=== PATIENT | female | born 1975 | race Caucasian/White ===

== ENCOUNTER 2022-07-31 07:58 | Outpatient (CLI) | payer BC | END 2022-07-31 07:59 | disposition home or self-care (01) | LOC: CSHMAMMO 07:58 | PROVIDERS: ATTEND Student in an Organized Health Care Education/Training Program | DX: N63.20 Unspecified lump in the left breast, unspecified quadrant (principal); N63.15 Unspecified lump in the right breast, overlapping quadrants | CPT/HCPCS: 77066; G0279 ==

== ENCOUNTER 2023-03-20 22:46 | Emergency (ER) | payer BC ==
[2023-03-20 23:32] LABS: #Basophils 0.1 10x3/uL (0.0-0.2); #Eosinphils 0.2 10x3/uL (0.0-0.5); #Monocytes 0.5 10x3/uL (0.0-1.1); #Neutrophils 5.2 10x3/uL (1.5-8.4); %Basophils 0.7 % (0.0-2.0); %Eosinophils 2.2 % (0.0-6.0); %Lymphocytes 30.6 % (18.0-47.0); %Monocytes 5.5 % (0.0-10.0); %Neutrophils 60.8 % (40.0-75.0); Hematocrit 36.6 % (34.9-44.5); Hemoglobin 12.2 g/dL (12.0-15.5); Mean Corpuscular HGB CONC 33.3 g/dL (32.0-36.0); Mean Corpuscular Hemoglobin 30.6 pg (27.0-33.0); Mean Corpuscular Volume 91.7 fl (81.6-98.3); Mean Platelet Volume 9.4 fl (7.4-10.4); Platelet Count 279 10x3/uL (150-450); RBC Distribution Width 11.9 % (11.5-14.5); Red Blood Cell (RBC) Count 3.99 10x6/uL (3.90-5.03); White Blood Cell (WBC) Count 8.5 10x3/uL (3.5-10.5)
[2023-03-20 23:46] LABS: ALT (SGPT) 19 U/L (8-55); AST (SGOT) 18 U/L (5-34); Alkaline Phosphatase 49 U/L (40-110); Anion Gap 11 mmol/L (10-20); BUN (Urea Nitrogen) 10 mg/dL (7.0-18.7); Bilirubin, Total 0.9 mg/dL (0.2-1.2); Calc. Creatinine Clearance 0 mL/min (70-130); Calcium 8.9 mg/dL (7.8-10.44); Carbon Dioxide 27 mmol/L (22-29); Chloride 107 mmol/L (98-107); Estimated GFR 92; Globulin 2.5 g/dL (2.4-3.5); Glucose 102 mg/dL (70-105); Magnesium 1.9 mg/dL (1.6-2.6); Potassium 3.7 mmol/L (3.5-5.1); Protein, Total 6.5 g/dL (6.0-8.3); Sodium 141 mmol/L (136-145)
[2023-03-20 23:52] LABS: Troponin I Less than 0.010 ng/mL (< 0.028)
== END 2023-03-21 00:31 | disposition home or self-care (01) ==
LOC: CSHERS 22:46
DX: I49.3 Ventricular premature depolarization (principal); R00.2 Palpitations
CPT/HCPCS: 36415; 71045; 80053; 83735; 84443; 84484; 85025; 93005

== ENCOUNTER 2023-12-23 10:34 | Outpatient (CLI) | payer BC | END 2023-12-23 10:35 | disposition home or self-care (01) | LOC: CSHDTY/OP 10:34 | PROVIDERS: ATTEND Student in an Organized Health Care Education/Training Program | DX: E66.01 Morbid (severe) obesity due to excess calories (principal) | CPT/HCPCS: 97802 ==

== ENCOUNTER 2024-01-31 09:48 | Outpatient (CLI) | payer BC | END 2024-01-31 09:49 | disposition home or self-care (01) | LOC: CSHDTY/OP 09:48 | PROVIDERS: ATTEND Student in an Organized Health Care Education/Training Program | DX: E66.01 Morbid (severe) obesity due to excess calories (principal) | CPT/HCPCS: 97802 ==

== ENCOUNTER 2024-02-18 08:50 | Outpatient (CLI) | payer BC | END 2024-02-18 08:51 | disposition home or self-care (01) | LOC: CSHDTY/OP 08:50 | PROVIDERS: ATTEND Student in an Organized Health Care Education/Training Program | DX: Z71.3 Dietary counseling and surveillance (principal); E66.01 Morbid (severe) obesity due to excess calories | CPT/HCPCS: 97802 ==

== ENCOUNTER 2024-03-03 09:06 | Outpatient (CLI) | payer BC | END 2024-03-03 09:07 | disposition home or self-care (01) | LOC: CSHDTY/OP 09:06 | PROVIDERS: ATTEND Student in an Organized Health Care Education/Training Program | DX: Z71.3 Dietary counseling and surveillance (principal); E66.01 Morbid (severe) obesity due to excess calories | CPT/HCPCS: 97802 ==

== ENCOUNTER 2024-03-17 13:03 | Outpatient (CLI) | payer BC | END 2024-03-17 13:04 | disposition home or self-care (01) | LOC: CSHDTY/OP 13:03 | PROVIDERS: ATTEND Student in an Organized Health Care Education/Training Program | DX: Z71.3 Dietary counseling and surveillance (principal); E66.01 Morbid (severe) obesity due to excess calories | CPT/HCPCS: 97802 ==

== ENCOUNTER 2024-04-20 10:43 | Outpatient (CLI) | payer BC | END 2024-04-20 10:44 | disposition home or self-care (01) | LOC: CSHDTY/OP 10:43 | PROVIDERS: ATTEND Student in an Organized Health Care Education/Training Program | DX: Z71.3 Dietary counseling and surveillance (principal); E66.01 Morbid (severe) obesity due to excess calories | CPT/HCPCS: 97802 ==

== ENCOUNTER 2024-05-30 14:31 | Outpatient (CLI) | payer BC, OTHER | END 2024-05-30 14:32 | disposition home or self-care (01) | LOC: CSHDTY/OP 14:31 | PROVIDERS: ATTEND Student in an Organized Health Care Education/Training Program | DX: Z71.3 Dietary counseling and surveillance (principal); E66.01 Morbid (severe) obesity due to excess calories | CPT/HCPCS: 97802 ==

== ENCOUNTER 2024-06-27 11:14 | Outpatient (CLI) | payer OTHER | END 2024-06-27 11:15 | disposition home or self-care (01) | LOC: CSHDTY/OP 11:14 | PROVIDERS: ATTEND Student in an Organized Health Care Education/Training Program | DX: Z71.3 Dietary counseling and surveillance (principal); E66.01 Morbid (severe) obesity due to excess calories | CPT/HCPCS: 97802 ==

== ENCOUNTER 2024-12-11 10:45 | Outpatient (CLI) | payer OTHER | END 2024-12-11 10:46 | disposition home or self-care (01) | LOC: CSHDTY/OP 10:45 | PROVIDERS: ATTEND Student in an Organized Health Care Education/Training Program | DX: Z71.3 Dietary counseling and surveillance (principal); E66.01 Morbid (severe) obesity due to excess calories | CPT/HCPCS: 97802 ==

== ENCOUNTER 2024-12-27 13:56 | Outpatient (CLI) | payer OTHER | END 2024-12-27 13:57 | disposition home or self-care (01) | LOC: CSHDTY/OP 13:56 | PROVIDERS: ATTEND Student in an Organized Health Care Education/Training Program | DX: Z71.3 Dietary counseling and surveillance (principal); E66.01 Morbid (severe) obesity due to excess calories | CPT/HCPCS: 97802 ==

== ENCOUNTER 2025-01-17 08:58 | Outpatient (CLI) | payer OTHER | END 2025-01-17 08:59 | disposition home or self-care (01) | LOC: CSHDTY/OP 08:58 | PROVIDERS: ATTEND Student in an Organized Health Care Education/Training Program | DX: Z71.3 Dietary counseling and surveillance (principal); E66.01 Morbid (severe) obesity due to excess calories | CPT/HCPCS: 97802 ==

== ENCOUNTER 2025-03-02 10:53 | Outpatient (CLI) | payer OTHER | END 2025-03-02 10:54 | disposition home or self-care (01) | LOC: CSHDTY/OP 10:53 | DX: Z71.3 Dietary counseling and surveillance (principal); E66.01 Morbid (severe) obesity due to excess calories | CPT/HCPCS: 97802 ==

== ENCOUNTER 2025-04-06 14:02 | Outpatient (CLI) | payer OTHER | END 2025-04-06 14:03 | disposition home or self-care (01) | LOC: CSHDTY/OP 14:02 | PROVIDERS: ATTEND Student in an Organized Health Care Education/Training Program | DX: Z71.3 Dietary counseling and surveillance (principal); E66.01 Morbid (severe) obesity due to excess calories | CPT/HCPCS: 97802 ==